=== PATIENT | male | born 1985 | race American Indian/Alaskan Native ===

== ENCOUNTER 2017-06-10 03:47 | Emergency (ER) | payer MEDICAID ==
--- NOTE | 2017-06-10 05:46 | ED PDOC ---
HPI: General Adult Time Seen by Provider: 06/10/17 03:55 Chief Complaint (Nursing): Medical Clearance History Per: Patient Additional Complaint(s): 32 yo M w/ h/o alcoholism and drinks daily, last drink was today, presents under the arrest of local police for medical and psychiatric clearance. Patient only c/o headache from his hangover. Otherwise: (-) lightheadedness, (-) trauma , (-) headache, (-) URI symptoms, (-) SOB, (-) chest pain, (-) dyspnea, (-) fever, (-) nausea / vomiting, (-) abdominal pain, (-) diarrhea, (-) syncope, (- ) GI bleeding. Past Medical History Vital Signs: Last Vital Signs Temp 98 F 06/10/17 03:53 Pulse 91 H 06/10/17 04:03 Resp 18 06/10/17 03:53 BP 144/91 H 06/10/17 04:03 Pulse Ox 96 06/10/17 03:53 - Family History Family History: States: Unknown Family Hx - Home Medications Home Medications: Ambulatory Orders Medication Instructions Recorded Ibuprofen [Motrin Tab] 800 mg PO Q8H PRN #15 tab 09/20/15 - Allergies Allergies/Adverse Reactions: Allergies Allergy/AdvReac Type Severity Reaction Status Date / Time No Known Allergies Allergy Verified 09/20/15 04:44 Physical Exam - Physical Exam Comments: GENERALIZED APPEARANCE: Patient is awake, alert, oriented x3 in no acute distress. SKIN: Warm, dry; (-) cyanosis. HEAD: Atraumatic, normocephalic. EYES: (-) conjunctival pallor, (-) scleral icterus. ENMT: Mucous membranes moist. NECK: (-) tenderness, (-) stiffness, (-) lymphadenopathy. CHEST AND RESPIRATORY: (-) rales, (-) rhonchi, (-) wheezes; breath sounds equal bilaterally. HEART AND CARDIOVASCULAR: (-) irregularity; (-) murmur, (-) gallop. ABDOMEN AND GI: (-) distention. Bowel sounds active; (-) tenderness, (-) guarding, (-) rebound, (-) palpable masses. EXTREMITIES: (-) deformity, (-) edema, (+) distal pulses. NEURO AND PSYCH: Mental status as above; (-) focal findings. - ECG O2 Sat by Pulse Oximetry: 96 Medical Decision Making Medical Decision Making: Patient medicated with tylenol po. Patient seen and evaluated by crisis. As per crisis, patient is medically cleared for outpatient f/u as per Dr. Dumont. On re-evaluation, patient sleeping in the ER comfortably in no acute distress, has no other complaints at this time. VS : P 91 BP 144/91. Patient is d/c to the care of local police. Disposition - Clinical Impression Clinical Impression: Alcohol intoxication, Adjustment disorder - Patient ED Disposition Is Patient to be Admitted: No - Disposition Disposition: Discharged/Transfer to Law Enforcement Disposition Time: 05:45 Condition: STABLE Additional Instructions: Patient medically and psychiatrically cleared for incarceration. Return patient to the Emergency Department if symptoms worsen, do not improve, or any other problems arise. Instructions: Adjustment Disorder, Alcohol Abuse and Alcoholism (DC) - PA / [employer] / Resident Statement / has reviewed & agrees with the documentation as recorded.
[2017-06-10 06:19] VITALS: BP 123/78; PULSE 75; RESP 17; TEMP 98.6; O2SAT 99
== END 2017-06-10 06:23 ==
LOC: H.ER 03:47
DX: F10.129 Alcohol abuse with intoxication, unspecified (principal); F43.20 Adjustment disorder, unspecified

== ENCOUNTER 2017-11-10 18:05 | Emergency (ER) | payer MEDICAID ==
[2017-11-10 18:31] VITALS: TEMP 98.3
[2017-11-10 19:55] LABS: HEMOGLOBIN 15.2 g/dL (12.0-18.0); MEAN CELL VOLUME 95.4 fl (80.0-94.0); MEAN CORPUSCULAR HEMOGLOBIN 31.8 pg (27.0-31.0); MEAN CORPUSCULAR HGB CONC 33.3 g/dL (33.0-37.0); RBC 4.78 Mil/uL (4.40-5.90); RED CELL DISTRIBUTION WIDTH 13.5 % (11.5-14.5); WHITE BLOOD COUNT 5.4 K/uL (4.8-10.8)
--- NOTE | 2017-11-10 20:08 | ED PDOC ---
HPI: CCC, URI, Sore Throat Time Seen by Provider: 11/10/17 19:08 Chief Complaint (Nursing): ENT Problem Chief Complaint (Provider): ENT Problem History Per: Patient History/Exam Limitations: no limitations Onset/Duration Of Symptoms: Persistent (x2 weeks) Current Symptoms Are (Timing): Still Present Additional Complaint(s): 32 year old male arrives to ED with a complaint of swelling, pain, and difficulty breathing to bilateral nostrils persistent for 2 weeks. Patient believes he may have irritated area while shaving. He denies any headache, chest pain, similar symptoms in past, taking medication for relief, or drug use. Of note, patient admits to Hx of alcohol abuse but recently quit on . BP noted at 185/124 durig triage. PMD: none provided Past Medical History Reviewed: Historical Data, Nursing Documentation, Vital Signs Vital Signs: Last Vital Signs Temp 98.3 F 11/10/17 18:29 Pulse 80 11/10/17 21:47 Resp 16 11/10/17 21:47 BP 166/99 H 11/10/17 21:47 Pulse Ox 99 11/11/17 16:35 - Medical History PMH: Denies: Diabetes, Hepatitis, HIV, HTN, Seizures, Sexually Transmitted Disease - Surgical History Surgical History: No Surg Hx - Family History Family History: States: Unknown Family Hx - Social History Current smoker - smoking cessation education provided: No Alcohol: None (recently quit 11/06/17) Drugs: Denies - Home Medications Home Medications: Ambulatory Orders Medication Instructions Recorded Ibuprofen [Motrin Tab] 800 mg PO Q8H PRN #15 tab 09/20/15 Doxycycline Hyclate 100 mg PO BID #14 capsule 11/10/17 Lisinopril [Prinivil] 10 mg PO DAILY #30 tablet 11/10/17 Mupirocin 2% Cream [Bactroban 1 appl EXT BID #1 tube 11/10/17 Cream] - Allergies Allergies/Adverse Reactions: Allergies Allergy/AdvReac Type Severity Reaction Status Date / Time No Known Allergies Allergy Verified 11/10/17 18:28 Review of Systems ROS Statement: Except As Marked, All Systems Reviewed And Found Negative ENT: Positive for: Nose Pain (bilateral swollen nostrils with difficulty breathing) Cardiovascular: Negative for: Chest Pain Neurological: Negative for: Headache Physical Exam - Reviewed Nursing Documentation Reviewed: Yes Vital Signs Reviewed: Yes - Physical Exam Appears: Positive for: Non-toxic, No Acute Distress Head Exam: Positive for: ATRAUMATIC, NORMAL INSPECTION, NORMOCEPHALIC Skin: Positive for: Normal Color Eye Exam: Positive for: Normal appearance, EOMI, PERRL ENT: Positive for: Other (bilateral dermatitis to upper columella with minimal erythema and tenderness. normal septum). Negative for: Sinus Pain/Drainage (or edema), Nasal Congestion, Tonsillar Swelling (or swollen gums) Cardiovascular/Chest: Positive for: Regular Rate, Rhythm Respiratory: Negative for: Respiratory Distress Extremity: Positive for: Normal ROM Neurologic/Psych: Positive for: Alert, Oriented - Laboratory Results Result Diagrams: 11/10/17 19:48 11/10/17 19:48 - ECG O2 Sat by Pulse Oximetry: 99 (RA) Pulse Ox Interpretation: Normal - Progress Re-evaluation Time: 20:51 Condition: Re-examined, Improved Medical Decision Making Medical Decision Making: Initial Impression: Impetigo; cellulitis; asymptomatic HTN r/o complications of HTN Initial Plan: * EKG * Labs Scribe Attestation: Documented by Ingrid Moore, acting as a scribe for Jayda Naik MD. Provider Scribe Attestation: All medical record entries made by the Scribe were at my direction and personally dictated by me. I have reviewed the chart and agree that the record accurately reflects my personal performance of the history, physical exam, medical decision making, and the department course for this patient. I have also personally directed, reviewed, and agree with the discharge instructions and disposition. Disposition - Clinical Impression Clinical Impression: Impetigo, Hypertension - Patient ED Disposition Is Patient to be Admitted: No Doctor Will See Patient In The: Office Counseled Patient/Family Regarding: Studies Performed, Diagnosis, Need For Followup - Disposition Referrals: [facility] [Outside] Disposition: Routine/Home Disposition Time: 21:30 Condition: GOOD Additional Instructions: DESIRE FITCH, thank you for letting us take care of you today. Your provider was Jayda Naik MD and you were treated for SWOLLEN NOSTRILS. The emergency medical care you received today was directed at your acute symptoms. If you were prescribed any medication, please fill it and take as directed. It may take several days for your symptoms to resolve. Return to the Emergency Department if your symptoms worsen, do not improve, or if you have any other problems. Please contact your doctor or call one of the physicians/clinics you have been referred to that are listed on the Patient Visit Information form that is included in your discharge packet. Bring any paperwork you were given at discharge with you along with any medications you are taking to your follow up visit. Our treatment cannot replace ongoing medical care by a primary care provider outside of the emergency department. Thank you for allowing the [facility] team to be part of your care today. If you had an X-Ray or CT scan: A Radiologist will review the ED reading if any change in treatment is needed we will contact you. If you had a blood, urine, or wound culture: It will take several days for the results, if any change in treatment is needed we will contact you. If you had an STI test: It will take 48 hours for the results. Please call after 1 week if you have not heard back. Prescriptions: Doxycycline Hyclate 100 mg PO BID #14 capsule Lisinopril [Prinivil] 10 mg PO DAILY #30 tablet Mupirocin 2% Cream [Bactroban Cream] 1 appl EXT BID #1 tube Instructions: High Blood Pressure in Adults, Impetigo Forms: [employer] (Greek)
[2017-11-10 20:35] LABS: BLOOD UREA NITROGEN 21 mg/dl (9-20); CALCIUM 9.5 mg/dL (8.4-10.2); GFR NON-AFRICAN AMERICAN > 60
[2017-11-11 01:52] VITALS: BP 166/99; PULSE 80; RESP 16
[2017-11-11 16:35] VITALS: O2SAT 99
--- NOTE | 2017-11-11 17:30 | CARD ---
APPROVED REPORT Date of service: 11/10/2017 <Conclusion> Normal sinus rhythm Moderate voltage criteria for LVH, may be normal variant T wave abnormality, consider inferior ischemia Abnormal ECG
== END 2017-11-10 21:50 | disposition home or self-care (01) ==
LOC: H.ER 18:05
DX: L01.00 Impetigo, unspecified (principal); I10 Essential (primary) hypertension

== ENCOUNTER 2018-04-21 22:30 | Emergency (ER) | payer MEDICAID ==
--- NOTE | 2018-04-21 22:44 | ED PDOC ---
HPI: General Adult Time Seen by Provider: 04/21/18 22:43 Chief Complaint (Nursing): Medical Clearance Chief Complaint (Provider): right shoulder injury History Per: Patient (33 y/o male here in police custody for medical clearance. 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 Tetanus up to date.) Past Medical History Reviewed: Historical Data, Nursing Documentation, Vital Signs Vital Signs: Last Vital Signs Temp 99 F 04/21/18 22:32 Pulse 136 H 04/21/18 22:32 Resp 20 04/21/18 22:32 BP 156/103 H 04/21/18 22:32 Pulse Ox 96 04/21/18 22:32 - Medical History PMH: Denies: Diabetes, Hepatitis, HIV, HTN, Chronic Kidney Disease, Seizures, Sexually Transmitted Disease - Family History Family History: States: Unknown Family Hx - Home Medications Home Medications: Ambulatory Orders Medication Instructions Recorded Ibuprofen [Motrin Tab] 800 mg PO Q8H PRN #15 tab 09/20/15 Doxycycline Hyclate 100 mg PO BID #14 capsule 11/10/17 Lisinopril [Prinivil] 10 mg PO DAILY #30 tablet 11/10/17 Mupirocin 2% Cream [Bactroban 1 appl EXT BID #1 tube 11/10/17 Cream] - Allergies Allergies/Adverse Reactions: Allergies Allergy/AdvReac Type Severity Reaction Status Date / Time No Known Allergies Allergy Verified 11/10/17 18:28 Review of Systems ROS Statement: Except As Marked, All Systems Reviewed And Found Negative Physical Exam - Reviewed Nursing Documentation Reviewed: Yes Vital Signs Reviewed: Yes - Physical Exam Appears: Positive for: Well, Non-toxic, No Acute Distress Head Exam: Positive for: ATRAUMATIC, NORMAL INSPECTION, NORMOCEPHALIC Skin: Positive for: Normal Color, Warm, DRY Eye Exam: Positive for: EOMI, Normal appearance, PERRL ENT: Positive for: Normal ENT Inspection Neck: Positive for: Normal, Painless ROM Cardiovascular/Chest: Positive for: Regular Rate, Rhythm Respiratory: Positive for: CNT, Normal Breath Sounds Gastrointestinal/Abdominal: Positive for: Normal Exam, Soft Back: Positive for: Normal Inspection Extremity: Positive for: Normal ROM, Tenderness, Swelling (minimal shoulder pain elicited. no obvious deformity.) Neurologic/Psych: Positive for: Alert, Oriented - ECG O2 Sat by Pulse Oximetry: 96 - Progress ED Course And Treament: REPEAT HEART RATE 101 Disposition - Clinical Impression Clinical Impression: Shoulder injury - Patient ED Disposition Is Patient to be Admitted: No - Disposition Disposition: Routine/Home Disposition Time: 00:27 Condition: STABLE Additional Instructions: PATIENT MEDICALLY AND PSYCHIATRICALLY CLEARED FOR INCARCERATION Instructions: General (DC)
[2018-04-22 00:11] VITALS: BP 127/79; PULSE 101; RESP 18; TEMP 97.9
[2018-04-22 00:28] VITALS: O2SAT 96
--- NOTE | 2018-04-22 10:40 | RAD ---
Date of service: 04/21/2018 PROCEDURE: Radiographs of the Right Shoulder HISTORY: shoulder injury COMPARISON: No prior. FINDINGS: BONES: Normal. No fracture. JOINTS: Normal. Glenohumeral and acromioclavicular joints preserved. No osteoarthritis. SOFT TISSUES: Normal. OTHER FINDINGS: None. IMPRESSION: Normal radiographs of the right shoulder.
== END 2018-04-22 00:40 ==
LOC: H.ER 22:30
DX: S49.91XA Unspecified injury of right shoulder and upper arm, initial encounter (principal); Y04.0XXA Assault by unarmed brawl or fight, initial encounter